=== PATIENT | female | born 1975 | race Caucasian/White ===

== ENCOUNTER → 2017-07-19 12:21 | Outpatient (CLI) | payer OTHER, SELFPAY ==
--- NOTE | 2017-07-19 12:24 | STEWCON_ITS ---
Version 2 Reason For Study: Chest Pain Stress Results Protocol: Benjy Protocol Maximum Predicted HR: 177 bpm Target HR: 150 bpm% Max imum Predicted HR: 85 % DurationHeart Rate Stage (mm:ss) (bpm) BPCom ment Baseline 71 138/82 Definity 5 ML Diluted Given; No Chest Pain Benjy Protocol Stage I 3:00 12 2 130/72No Chest Pain; Mild Dyspnea Benjy Protocol Stage II 3:31 15 1 158/70No Chest Pain, Moderate Dyspnea Recovery 92 140/86 No Chest Pain, No Dyspnea Stress Duration: 6:31 mm:ss Maximum Stress HR: 151 bpmM ETS: 7 Baseline Echocardiogram Findings Stress Echo Wall motion Data Resting WMIntermediate WMStress WM Resting Wall Motion Wall Motion Stress No regional wall motion No regional wall motion abnormalities noted. abnormalities noted. Ejection Fraction 55 %. Ejection Fraction 60 %. Stress Results Normal blood pressure response to exercise. Exercise was stopped due to fatigue. EKG Data Baseline ECG demonstrates normal sinus rhythm with a rate of 72 beats per minute. Normal intervals are noted. The resting blood pressure was 138/82. The patient exercised according to the regular Benjy protocol for a total duration of 6;31. The maximum heart rate attained was 153 beats per minute. This was 86% of maximum predicted heart rate. The patient exercised into stage 2 of the Benjy protocol. During stress, there were no ST or T wave changes noted to suggest ischemia. At peak exercise, upsloping ST changes only were noted, which did not meet the criteria for ischemia. No arrhythmias noted. The peak blood pressure was 178/80. No clinical angina was noted. Interpretation Summary Normal resting LV systolic function. Nonstenotic valves. With stress, the LV size decreased and all segments augmented normally. The LVEF increased from 55% to 65%. Negative for ischemia at 86% of MPHR and at 7 METS. Normal stress echo. technically difficult echo Ordering Physician: RAHUL LOVE Referring Physician: Josh Valdivia MD Performed By: Lee Ann Prieto, ZAIRA, RVT
== END ==
PROVIDERS: Family Provider Physician Assistant; PCP Physician Assistant; Visit Provider Physician Assistant
DX: R07.89 Other chest pain (principal)
CPT/HCPCS: 93017; 93350; Q9957; A4216; C8928

== ENCOUNTER → 2017-11-04 09:22 | Outpatient (CLI) | payer OTHER, SELFPAY | PROVIDERS: Family Provider Physician Assistant; PCP Physician Assistant; Visit Provider Physician Assistant | DX: R10.9 Unspecified abdominal pain (principal); R06.02 Shortness of breath | CPT/HCPCS: 71046; 76700; 76830; 76856; 93976 ==